=== PATIENT | female | born 1995 | race Caucasian/White ===

== ENCOUNTER 2016-11-25 11:03 | Emergency (ER) | payer OTHER ==
[~2016-11-25] VITALS: Ht 175.3 cm; Wt 63.0 kg
[2016-11-25 11:34] LABS: *BILIRUBIN,URIN NEGATIVE (NEGATIVE); *BLOOD, URINE 1+ (NEGATIVE); *CLARITY,URINE SLIGHTLY CLOUDY (CLEAR); *COLOR,URINE YELLOW (YELLOW); *KETONES,URINE TRACE (NEGATIVE); *PROTEIN,URINE 1+ (NEGATIVE); *UROBILINOGEN,URINE 0.2 E.U./dl (NORMAL); LEUKOCYTE ESTERASE ,URINE 3+ (NEGATIVE); NITRITE, URINE NEGATIVE (NEGATIVE); UGLUCOSE NEGATIVE (NEGATIVE)
[2016-11-25 11:42] LABS: *URINE HCG, QUAL NEGATIVE (NEGATIVE)
[2016-11-25 11:53] LABS: RBC,URINE 0-3 /HPF (0-3)
[2016-11-25 11:54] LABS: BACTERIA,URINE FEW /HPF (NONE SEEN); SQUAMOUS EPITHELIAL CELL,UR FEW /HPF (NONE SEEN)
[2016-11-25 11:55] LABS: YEAST,URINE FEW /HPF (NONE SEEN)
[2016-11-25] MEDS ORDERED: SULFAMETH/TRIMETH 800/160 MG TABLET PO ONE (12:00)
--- NOTE | 2016-11-25 12:02 | NUR ---
DR LENNON AT BEDSIDE MADE PATIENT AWARE OF TEST RESULTS.
--- NOTE | 2016-11-25 12:03 | NUR ---
Patient discharged to home in stable conditon. Written and verbal after care instructions given. Patient verbalizes understanding of instructions.
[2016-11-25] MEDS ORDERED: SULFAMETH/TRIMETH 800/160 MG TABLET ONE (12:08)
== END 2016-11-25 12:06 | disposition home or self-care (01) ==
LOC: ER 11:03
DX: N39.0 Urinary tract infection, site not specified (principal)
CPT/HCPCS: 81001; 84703; 99283; A4663